=== PATIENT | male | born 1955 | race Caucasian/White ===

== ENCOUNTER → 2017-11-05 | Outpatient (CLI) | payer OTHER ==
--- NOTE | 2017-11-05 12:56 | PCVCIMAG ---
APPROVED REPORT Exam: Stress Echocardiogram Indication: Atrial Fibrillation, Hyperlipidemia Patient Location: Echo lab Stress Nurse: Perla Epperson RN Status: routine Ht: 6 ft 0 in HR: 62 bpm BP: 138/80 mmHg Rhythm: NSR Medical History Medical History: Atrial Fibrillation, Hyperlipidemia Procedure The patient underwent an Exercise Stress Test using the Jignesh Protocol. Blood pressure, heart rate, and EKG were monitored. An Echocardiogram was performed by medical coding technician in four stages in quad fashion. At peak stress, four selected images were obtained and placed side by side with resting images for comparison. Stress Test Details Stress Test: Exercise stress testing was performed using a Jignesh protocol. HR Resting HR: 62 bpmMax Heart Rate (APMHR): 156 bpm Max HR Achieved: 113 bpmTarget HR (85% APMHR): 132 bpm % of APMHR: 72 HR response to stress: Normal HR response to stress BP Resting BP: 138/80 mmHg Max BP: 144/80 mmHg ECG Resting ECG: Sinus Rhythm Stress ECG: Sinus Rhythm Recovery ECG: Sinus Rhythm Clinical Reason for Termination: Maximal effort Exercise duration: 11 min sec Highest Stage Achieved: Stage 4: 4.2 mph at 16% grade. Exercise capacity: 13.40 METs Overall Exercise Capacity for Age: Normal Pre-Stress Echo The resting Echocardiogram showed normal left ventricular contractility with an estimated Ejection Fraction of about 55-60%. Normal wall motion in all segments on baseline images. Post-Stress Echo The stress Echocardiogram showed normal left ventricular contractility with an estimated Ejection Fraction of about 60-65%. Normal augmentation of wall motion in all segments on post stress images. Conclusion Clinical Response: Non-ischemic Exercise Capacity: Average Stress ECG Response: Non-ischemic Stress Echo Images: Non-ischemic The left ventricle is normal in size and wall thickness in both the rest and stress images. Other Information Study Quality: Good <Conclusion> The left ventricle is normal in size and wall thickness in both the rest and stress images.
== END | disposition home or self-care (01) ==
LOC: PCVCIMAG 09:33
PROVIDERS: ATTEND Internal Medicine Cardiovascular Disease
DX: I48.0 Paroxysmal atrial fibrillation (principal); E78.5 Hyperlipidemia, unspecified; I34.0 Nonrheumatic mitral (valve) insufficiency
CPT/HCPCS: 93325; 93351

== ENCOUNTER → 2018-07-30 | Outpatient (CLI) | payer OTHER, MEDICARE ==
--- NOTE | 2018-07-30 12:43 | PCVCIMAG ---
APPROVED REPORT Study performed: 07/30/2018 09:03:55 EXAM: Comprehensive 2D, Doppler, and color-flow Echocardiogram Patient Location: Echo lab Status: routine BSA: 2.22 HR: 86 bpm Rhythm: Atrial Fibrillation Other Information Study Quality: Adequate Indications Atrial Fibrillation 2D Dimensions RVDd: 31.39 mm IVSd: 14.03 (7-11mm)LVOT Diam: 24.45 (18-24mm) LVDd: 53.42 mm PWd: 13.72 (7-11mm)Ascending Ao: 38.14 (22-36mm) LVDs: 49.07 (25-40mm) Left Atrium: 42.21 (27-40mm) Aortic Root: 32.78 mm LV Single Plane 4CH: 61.91 % LV Single Plane 2CH: 57.50 % Volumes Left Atrial Volume (Systole) Single Plane 4CH: 62.24 mLSingle Plane 2CH: 62.63 mL LA ESV Index: 31.00 mL/m2 Aortic Valve AoV Peak James.: 1.13 m/s AO Peak Gr.: 6.54 mmHgLVOT Max P.89 mmHg LVOT Max V: 0.84 m/s HOLLY Vmax: 3.50 cm2 Mitral Valve E/A Ratio: 0.8 MV E Max James.: 1.07 m/s MV A James.: 1.32 m/s Pulmonary Valve PV Peak Gr.: 1.59 mmHg Tricuspid Valve TR Peak James.: 2.28 m/s TR Peak Gr.: 20.72 mmHg Left Ventricle The left ventricle is normal size. There is normal LV segmental wall motion. There is normal left ventricular wall thickness. Left ventricular systolic function is normal. The left ventricular ejection fraction is within the normal range. LVEF is >55%. The left ventricular diastolic function is normal. Right Ventricle The right ventricle is normal size. The right ventricular systolic function is normal. Atria The left atrium size is normal. The right atrium size is normal. Aortic Valve The aortic valve is normal in structure. No aortic regurgitation is present. There is no aortic valvular stenosis. Mitral Valve The mitral valve is normal in structure. Mild mitral regurgitation. No evidence of mitral valve stenosis. Tricuspid Valve The tricuspid valve is normal in structure. Mild tricuspid regurgitation. Pulmonary artery pressure is 27mmHg. Pulmonic Valve The pulmonary valve is normal in structure. There is no pulmonic valvular regurgitation. Great Vessels The aortic root is normal in size. IVC is normal in size and collapses >50% with inspiration. Pericardium There is no pericardial effusion. <Conclusion> The left ventricle is normal size. LVEF is >55%. The left ventricular diastolic function is normal. The right ventricle is normal size. The left atrium size is normal. The right atrium size is normal. The aortic valve is normal in structure. Mild mitral regurgitation. Mild tricuspid regurgitation. Pulmonary artery pressure is 27mmHg. The aortic root is normal in size. There is no pericardial effusion.
== END | disposition home or self-care (01) ==
LOC: PCVCIMAG 10:46
PROVIDERS: ATTEND Internal Medicine Cardiovascular Disease
DX: I08.1 Rheumatic disorders of both mitral and tricuspid valves (principal); I48.91 Unspecified atrial fibrillation
CPT/HCPCS: 93306

== ENCOUNTER → 2018-08-18 | Outpatient (CLI) | payer OTHER, MEDICARE ==
[~2018-08-18] MED LIST: BENZOCAINE ONE 20% MUCOSAL SPRAY.; IV NORMAL SALINE 1000ML BAG 1,000 ML ONE; MIDAZOLAM HCL/PF 2 MG/2 ML VIAL. ONE; fentaNYL PF VIAL 100 MCG/2 ML VIAL ONE
--- NOTE | 2018-08-18 13:05 | PCVCIMAG ---
APPROVED REPORT Study performed: 08/18/2018 09:29:45 EXAM: Transesophageal Echocardiogram Patient Location: [facility] Room #: 1 Status: routine BSA: 2.22 HR: 74 bpm Rhythm: NSR Other Information Study Quality: Good Indications Atrial Fibrillation Pre-ablation Echo Enhancing Agent Indication: Rule out Shunt Agent(s) / Amount(s) Used: Agitated Saline 10 cc Comments: Negative contrast study for shunt flow. Procedure After obtaining informed consent, patient underwent transesophageal echo in the [employer] [facility] [facility]. Type of Sedation : Conscious Sedation Sedation was administered by Corrine Jimenez RN. Sedation start time: 9:43 Case end Time: 9:52 Sedation was achieved intravenously with: Versed (4mg) Fentanyl (125mcg) Transesophageal probe was inserted and advanced into esophagus without difficulty by Keanu Beal MD. Echo enhancement indication: R/O Septal defect. Echo enhancement agent administered: Agitated Saline The ISABEL was performed without complications. Throughout the procedure, the blood pressure, pulse oximetry, cardiac rhythm, and rate were monitored. The patient tolerated the procedure without adverse effects. Recovery from conscious sedation was uneventful and vital signs were stable. Left Ventricle The left ventricle is normal size. There is normal LV segmental wall motion. There is normal left ventricular wall thickness. The left ventricular systolic function is normal. The left ventricular ejection fraction is within the normal range. LVEF is 60-65%. Right Ventricle The right ventricle is normal size. The right ventricular systolic function is normal. Atria No thrombus is visualized in the left atrium or appendage. The left atrium size is normal. Interatrial septum is intact without evidence of ASD or PFO. Aortic Valve Aortic valve is trileaflet. No aortic regurgitation is present. There is no aortic valvular stenosis. Mitral Valve The mitral valve is normal in structure. Trace mitral regurgitation. No evidence of mitral valve stenosis. Tricuspid Valve The tricuspid valve is normal in structure. There is no tricuspid valve regurgitation noted. Pulmonic Valve The pulmonary valve is normal in structure. There is no pulmonic valvular regurgitation. Great Vessels The aortic root is normal in size. The ascending aorta is normal in size. Aortic arch is normal in caliber. Pericardium There is no pericardial effusion. <Conclusion> The left ventricular systolic function is normal. There is normal LV segmental wall motion. LVEF is 60-65%. No shunting by contrast bubble injection No thrombus is visualized in the left atrium or appendage. Aortic valve is trileaflet. No aortic regurgitation or stenosis The mitral valve is normal in structure. Trace mitral regurgitation. There is no pericardial effusion.
== END | disposition home or self-care (01) ==
LOC: PCVCINTER 10:01
PROVIDERS: ATTEND Internal Medicine Cardiovascular Disease
DX: I34.0 Nonrheumatic mitral (valve) insufficiency (principal); I48.91 Unspecified atrial fibrillation
CPT/HCPCS: 93312; 93325; J2250; J3010; J7030

== ENCOUNTER → 2018-09-01 | Outpatient (CLI) | payer OTHER, MEDICARE ==
--- NOTE | 2018-09-01 17:47 | PCVCIMAG ---
EXAM: DUPLEX ULTRASOUND OF THE RIGHT GROIN INDICATION: Groin swelling and pain. FINDINGS: No pseudoaneurysm is present. The common femoral artery and vein are patent. No arteriovenous fistula is seen. IMPRESSION: Study is negative for pseudoaneurysm. LOC:[id number]
== END | disposition home or self-care (01) ==
LOC: PCVCIMAG 14:02
PROVIDERS: ATTEND Internal Medicine Cardiovascular Disease
DX: Z48.812 Encounter for surgical aftercare following surgery on the circulatory system (principal); R10.31 Right lower quadrant pain; M79.89 Other specified soft tissue disorders
CPT/HCPCS: 93926

== ENCOUNTER → 2018-11-25 | Outpatient (CLI) | payer MEDICARE, OTHER | END | disposition home or self-care (01) | LOC: PCVCCLINIC 10:18 | PROVIDERS: ATTEND Internal Medicine Cardiovascular Disease | DX: I48.0 Paroxysmal atrial fibrillation (principal); I65.23 Occlusion and stenosis of bilateral carotid arteries; E78.00 Pure hypercholesterolemia, unspecified; Z79.82 Long term (current) use of aspirin; Z87.891 Personal history of nicotine dependence | CPT/HCPCS: 36415; 80061; 93005; G0463 ==

== ENCOUNTER → 2019-03-03 | Outpatient (CLI) | payer MEDICARE, OTHER ==
--- NOTE | 2019-03-03 12:34 | PCVCIMAG ---
APPROVED REPORT Study performed: 03/03/2019 10:06:56 Exam: Stress Echocardiogram Indication: Hyperlipidemia,Elevated coronary calcium score Patient Location: Echo lab Stress Nurse: Chaparrita Goncalves RN Room #: 2 Status: routine Ht: 6 ft 0 in HR: 66 bpm BP: 160/90 mmHg Rhythm: NSR Medical History Medical History: A Fib ablation,, Hyperlipidemia Medications: Flecainide Cardiac Risk Factors: Hyperlipidemia Previous Cardiac Procedures: A Fib ablation Pretest Chest Pain Characteristics: No chest pain Exercise History: Physically active Procedure The patient underwent an Exercise Stress Test using the Erik Protocol. Blood pressure, heart rate, and EKG were monitored. An Echocardiogram was performed by landscape technician in four stages in quad fashion. At peak stress, four selected images were obtained and placed side by side with resting images for comparison. Stress Test Details Stress Test: Exercise stress testing was performed using a Erik protocol. HR Resting HR: 67 bpmMax Heart Rate (APMHR): 155 bpm Max HR Achieved: 121 bpmTarget HR (85% APMHR): 131 bpm % of APMHR: 78 Recovery HR: 80 bpm HR response to stress: Blunted HR response to stress BP Resting BP: 160/90 mmHg Max BP: 188/84 mmHg Recovery BP: 174/84 mmHg BP response to stress: Mildlyl hypertensive response to stress. ECG Resting ECG: Sinus Rhythm Stress ECG: Sinus Rhythm ST Change: Non-ischemic Arrhythmia: Rare PACs Recovery ECG: Sinus Rhythm Recovery ST Change: Non-ischemic Recovery Arrhythmia: None Clinical Reason for Termination: Maximal effort Stress Symptoms: fatifue Exercise duration: 10 min 31 sec Highest Stage Achieved: Stage 4: 4.2 mph at 16% grade. Exercise capacity: 13.4 METs Overall Exercise Capacity for Age: Good Scale: Active Angina Score: None No complications. Stress ECG Conclusion The patient exercised according to the ERIK protocol for 10:31 mins; achieving a work level of 13.4 METS. The resting heart rate of 66 bpm jose to a maximum heart rate of 121 bpm. This value represent 78% of the maximal, age-predicted heart rate. The resting blood pressure of 160/90mmHg, jose to a maximum blood pressure of 188/84 mmHg. The exercise test was stopped due to fatigue . Pre-Stress Echo The resting Echocardiogram showed normal left ventricular contractility with an estimated Ejection Fraction of about 55-60%. Normal wall motion in all segments on baseline images. Post-Stress Echo The stress Echocardiogram showed normal left ventricular contractility with an estimated Ejection Fraction of about 65-70%. Normal augmentation of wall motion in all segments on post stress images. Clinical No clinical or ECG evidence for ischemia. Conclusion Clinical Response: Non-ischemic Exercise Capacity: Superior Stress ECG Response: Non-ischemic Stress Echo Images: Non-ischemic No clinical, EKG or echocardiographic evidence for ischemia. No echocardiographic evidence for exercise induced ischemia. Sub-maximal study due to inability of the patient to achieve 85% of maximal HR. <Conclusion> No clinical, EKG or echocardiographic evidence for ischemia. No echocardiographic evidence for exercise induced ischemia. Sub-maximal study due to inability of the patient to achieve 85% of maximal HR.
== END | disposition home or self-care (01) ==
LOC: PCVCIMAG 09:56
PROVIDERS: ATTEND Internal Medicine Cardiovascular Disease
DX: E78.5 Hyperlipidemia, unspecified (principal); R93.1 Abnormal findings on diagnostic imaging of heart and coronary circulation; E78.00 Pure hypercholesterolemia, unspecified; I48.0 Paroxysmal atrial fibrillation
CPT/HCPCS: 36415; 80061; 93325; 93351

== ENCOUNTER → 2019-10-28 | Outpatient (CLI) | payer MEDICARE, OTHER | END | disposition home or self-care (01) | LOC: PCVCCLINIC 15:58 | PROVIDERS: ATTEND Internal Medicine | DX: R93.1 Abnormal findings on diagnostic imaging of heart and coronary circulation (principal); E78.00 Pure hypercholesterolemia, unspecified; I48.0 Paroxysmal atrial fibrillation; Z87.891 Personal history of nicotine dependence; Z79.82 Long term (current) use of aspirin; Z79.899 Other long term (current) drug therapy | CPT/HCPCS: 36415; 80061; 93005; G0463 ==